=== PATIENT | female | born 2005 | race Two or more races ===

== ENCOUNTER → 2024-11-29 09:55 | Outpatient (BNVA) | payer MEDICAID, SELFPAY | PROVIDERS: Visit Provider Nurse Practitioner Women's Health | DX: N91.2 Amenorrhea, unspecified (principal); N92.6 Irregular menstruation, unspecified | CPT/HCPCS: 81025 ==

== ENCOUNTER → 2024-12-06 11:06 | Outpatient (BNVA) | payer MEDICAID, SELFPAY | PROVIDERS: Visit Provider Nurse Practitioner Women's Health | DX: Z36.9 Encounter for antenatal screening, unspecified (principal) | CPT/HCPCS: 76801 ==

== ENCOUNTER → 2024-12-25 11:40 | Outpatient (BNVA) | payer MEDICAID, SELFPAY | PROVIDERS: Visit Provider Nurse Practitioner Women's Health | DX: Z34.01 Encounter for supervision of normal first pregnancy, first trimester (principal) | CPT/HCPCS: 80307; 84315; 85025; 86592; 86762; 86803; 86850; 86900; 87086; 87340; 87806 ==

== ENCOUNTER → 2025-01-09 12:35 | Outpatient (BNVA) | payer OTHER, MEDICAID, SELFPAY | PROVIDERS: Visit Provider Nurse Practitioner Women's Health | DX: Z34.01 Encounter for supervision of normal first pregnancy, first trimester (principal) | CPT/HCPCS: 84315; 87491; 87591; 87661 ==

== ENCOUNTER → 2025-01-30 09:39 | Outpatient (BNVA) | payer OTHER, MEDICAID, SELFPAY | PROVIDERS: Visit Provider Nurse Practitioner Women's Health | DX: O26.899 Other specified pregnancy related conditions, unspecified trimester (principal); R10.9 Unspecified abdominal pain | CPT/HCPCS: 81000 ==

== ENCOUNTER → 2025-02-19 10:00 | Outpatient (BNVA) | payer OTHER, MEDICAID, SELFPAY | PROVIDERS: Visit Provider Nurse Practitioner Women's Health | DX: Z34.01 Encounter for supervision of normal first pregnancy, first trimester (principal) | CPT/HCPCS: 82105; 84315; 87086 ==

== ENCOUNTER → 2025-03-05 09:52 | Outpatient (BNVA) | payer OTHER, MEDICAID, SELFPAY | PROVIDERS: Visit Provider Obstetrics & Gynecology | DX: O26.892 Other specified pregnancy related conditions, second trimester (principal); Z3A.20 20 weeks gestation of pregnancy | CPT/HCPCS: 76805 ==

== ENCOUNTER → 2025-04-02 11:02 | Outpatient (BNVA) | payer OTHER, MEDICAID, SELFPAY | PROVIDERS: Visit Provider Nurse Practitioner Women's Health | DX: Z34.02 Encounter for supervision of normal first pregnancy, second trimester (principal) | CPT/HCPCS: 82950; 84315 ==

== ENCOUNTER → 2025-05-03 14:37 | Outpatient (BNVA) | payer OTHER, MEDICAID, SELFPAY | PROVIDERS: Visit Provider Obstetrics & Gynecology | DX: Z34.02 Encounter for supervision of normal first pregnancy, second trimester (principal) | CPT/HCPCS: 84315 ==

== ENCOUNTER → 2025-05-17 15:08 | Outpatient (BNVA) | payer OTHER, MEDICAID, SELFPAY | PROVIDERS: Visit Provider Obstetrics & Gynecology | DX: Z34.02 Encounter for supervision of normal first pregnancy, second trimester (principal) | CPT/HCPCS: 84315 ==

== ENCOUNTER 2025-06-03 10:40 | Outpatient (CLI) | payer OTHER, MEDICAID, SELFPAY ==
[2025-06-03 10:50] VITALS: BMI 26.9
[2025-06-03 10:59] VITALS: BP 137/69; PULSE 75
[2025-06-03 11:15] VITALS: BP 121/61; PULSE 54
[2025-06-03 11:30] VITALS: BP 123/68; PULSE 61
== END 2025-06-03 11:45 | disposition home or self-care (01) ==
LOC: OPOB 10:43 → OBGYN 10:43
PROVIDERS: Visit Provider Obstetrics & Gynecology
DX: O36.8190 Decreased fetal movements, unspecified trimester, not applicable or unspecified (principal); Z3A.00 Weeks of gestation of pregnancy not specified
CPT/HCPCS: 59025; 99211

== ENCOUNTER → 2025-06-13 14:10 | Outpatient (BNVA) | payer OTHER, MEDICAID, SELFPAY | PROVIDERS: Visit Provider Nurse Practitioner Women's Health | DX: Z34.03 Encounter for supervision of normal first pregnancy, third trimester (principal) | CPT/HCPCS: 81000; 85025 ==

== ENCOUNTER 2025-07-04 09:26 | Outpatient (CLI) | payer OTHER, MEDICAID, SELFPAY ==
[2025-07-04 09:39] VITALS: BP 139/74; PULSE 88
[2025-07-04 09:42] VITALS: RESP 18; BMI 27.8
[2025-07-04 10:00] VITALS: BP 135/84; PULSE 85
[2025-07-04 10:20] VITALS: BP 121/63; PULSE 74
[2025-07-04 10:40] VITALS: BP 121/60; PULSE 76
== END 2025-07-04 10:55 | disposition home or self-care (01) ==
LOC: OPOB 09:27 → OBGYN 09:31
PROVIDERS: Absent Provider Family Medicine; Visit Provider Family Medicine
DX: O26.899 Other specified pregnancy related conditions, unspecified trimester (principal); Z3A.00 Weeks of gestation of pregnancy not specified; R25.2 Cramp and spasm
CPT/HCPCS: 59025; 99211

== ENCOUNTER 2025-07-04 15:24 | Inpatient (IN) | payer OTHER, MEDICAID, SELFPAY ==
[2025-07-04] VITALS (68 sets, daily range): BP systolic 116–160; BP diastolic 59–91; PULSE 60–148; RESP 14–16; TEMP 36.2–37.2; O2SAT 98–100; BMI 27.7
[2025-07-04 16:01] LABS: Hematocrit 37.1 % (36-47); Hemoglobin 12.90 g/dL (12.4-14.8); Mean Corpuscular HGB Conc 34.8 g/dL (30-55); Mean Corpuscular Hemoglobin 30.6 pg (27-33); Mean Corpuscular Volume 88.1 fl (85-98); Nucleated Red Blood Cells % 0 %; Platelet Count 182 10^3/cmm (157-399); Red Blood Count 4.21 10^6/uL (3.85-5.65); White Blood Count 14.82 10^3/uL (4.5-13.0)
[2025-07-04] MEDS: penicillin g potassium 5,000,000 UNIT in sodium chloride 0.9% (plus) 100 ML 100 UNIT IV (16:03)
--- NOTE | 2025-07-04 17:03 | ANES.PREANE2 ---
Pre-Anesthetic Assessment Height/Weight: Height 1.7 m Weight 80.286 kg Temp Pulse BP Pulse Ox O2 Del Method 97.2 F L 81 132/69 100 Room Air 07/04/25 16:04 07/04/25 17:54 07/04/25 17:54 07/04/25 17:54 07/04/25 15:29 Familial anesthetic complications: none Was Beta Andreia taken within 24 hours: N/A Was Clonidine taken within 24 hours: N/A Social No alcohol and No tobacco Exam alert and oriented x 3 Airway Submandibular: within normal limits Cervical ROM: within normal limits Mallampati: Class II Dentition: full History/ROS No significant complaints Anesthetic Plan ASA status: 2 Anesthesia: Anesthesia Evaluation and Regional (specify below) Risk of > 500 ml blood loss (7ml/kg in children): Yes, adequate IV access and fluids planned Medications/Allergies Home Medications ?Medication ?Instructions ?Recorded ?Confirmed ?Last Taken ?Type vitamins 30 30 mg iron-10 1 cap PO DAILY 11/29/24 07/04/25 07/04/25 07:00 History mg iron-folic acid 1 mg-om3 capsule ferrous sulfate 15 mg iron (75 1 mg PO BID 07/04/25 07/04/25 Unknown History mg)/mL oral drops Allergies Allergy/AdvReac Type Severity Reaction Status Date / Time No Known Allergies Allergy Verified 06/13/25 14:25 Current Medications Generic Name Dose Route Start Last Admin Trade Name Freq PRN Reason Stop Dose Admin Lactated Ringer's 1,000 mls @ 999 mls/hr 07/04/25 15:28 07/04/25 16:03 Lactated Ringers IV 999 mls/hr .Q1H1M PRN Administration See label comments Ropivacaine 200 mg in 100 mls @ 10 mls/hr 07/04/25 15:30 07/04/25 17:54 Naropin Premix EPIDURAL 8 mls/hr .Q10H FANTA Administration Lactated Ringer's 1,000 mls @ 999 mls/hr 07/04/25 17:54 07/04/25 17:57 Lactated Ringers IV 07/04/25 18:54 999 mls/hr .Q1H1M ONE Administration PFSH Anesthesia Medical History No pertinent past medical history neghx: htn, dm, thyroid, dvt/pe PCP: none Surgical History No pertinent past surgical history Family History Grandmother Diabetes Denies family history of Colon cancer Ovarian cancer Prostate cancer Heart disease Hyperlipidemia Breast cancer Hypertension Uterine cancer Thyroid disease Stroke Social History Smoking and tobacco/nicotine status: never used tobacco/nicotine Female Reproductive History : 1 Data Anesthesia 07/04/25 15:45 Short CBC 07/04/25 Range/Units 15:45 WBC 14.82 H (4.5-13.0) 10^3/uL Hgb 12.90 (12.4-14.8) g/dL Hct 37.1 (36-47) % MCV 88.1 (85-98) fl Plt Count 182 (157-399) 10^3/cmm Neut % (Auto) 77.0 % Neut # (Auto) 11.41 H (1.8-8.0) 10^3/uL Blood Bank 07/04/25 15:45 Blood Type O Positive Rho(D) Type Rh positive Antibody Screen Negative
[2025-07-04] MEDS: ROPivacaine premix 200 MG/100 ML PREMIX 8 MG EPIDURAL (17:54)
--- NOTE | 2025-07-04 18:29 | PC.NURSE ---
SEE ANESTHESIA REPORT
--- NOTE | 2025-07-04 18:34 | P.ANES_ITS ---
Anesthesia Procedures Procedure/Date: 07/04/25 Epidural: Time Out Performed: Yes Consents Signed: Procedure Consent Consent: requested by attending/covering physician, from patient and patient agrees to proceed Lumbar Level: L4-L5 Epidural position: sitting Epidural procedure: sterile prep of area, 1% lidocaine to numb the area, 18 g needle, negative for paresthesia passed, test dose given, 1.5% xylocaine 1:200k epi, 0.2% Ropivacaine bolus ml, sterile dressing applied, L.U.D. no apparent complications and 0.2% Ropiavacaine @ mls/hr Additional Comments: 1st attempt at L3-4 Heme with aspiration . catheter removed 2nd attempt at L4-5 successful. no CSF, no heme with aspiration x3. No BP changes, HR fluctuations from 90s to 120s to 140s, back to 100s, and back to 120s, and back to 90s and back to 80s from test dose (1729) until about 1750. Dr. Sahu called and consulted by [employer] DISPATCHER about whether or not this was a positive test dose or not. no other symptoms experienced by patient. decision made to start pump at 8ml/hr (started at 1752) and watch patient closely for 30min. patient educated on symptoms to watch for such as lightheadedness, dizziness, ringing in ears, metal taste in mouth. 1830- pt. states zero of the above sympt oms. With agreement with Dr. Sahu pump increased to 10ml/hr for 30min. then without symptoms can increase to 13ml/hr if needed for additional pain relief.
[2025-07-04] MEDS: PENICILLIN G POTASSIUM 2,500,000 UNIT/50 ML BAG 50 UNIT IV ×2 (19:33→23:46)
[2025-07-04] MEDS: ROPivacaine premix 200 MG/100 ML PREMIX 12 MG EPIDURAL (23:50)
[2025-07-05] VITALS (46 sets, daily range): BP systolic 99–150; BP diastolic 51–81; PULSE 61–134; RESP 16; TEMP 36.8–37.7; O2SAT 97
[2025-07-05] MEDS: PENICILLIN G POTASSIUM 2,500,000 UNIT/50 ML BAG 50 UNIT IV (03:36)
[2025-07-05] MEDS: oxytocin 30 UNIT/500 ML BAG 600 UNIT IV (04:27)
[2025-07-05] MEDS: PRENATAL VIT NO.130/IRON/FOLIC 1 EACH TABLET PO (06:09)
--- NOTE | 2025-07-05 07:24 | PM.OPHPUD ---
Labor & Delivery H&P Update Date of Procedure: July 05, 2025 Date H&P Performed: 07/02/25 Admission Diagnosis: IUP at term in active labor Planned procedure: Expectant management of labor and delivery
--- NOTE | 2025-07-05 07:25 | P.PCNOB_ITS ---
Delivery Note: Date of delivery: July 05, 2025 Estimated blood loss (mL): 200 Pre-Delivery Course: The patient [facility]. She transferred care at approximately 36 weeks gestation to [facility]. There were no complications during the . Delivery: This is a 19-year-old at 37 weeks 6 days gestation who was admitted in active labor. She was noted to be GBS positive and was started on penicillin protocol. She received an epidural for pain management. She had spontaneous rupture of membranes with meconium stained fluid. She had to push for nearly an hour had a normal spontaneous vaginal delivery of a viable male infant weight 3260 g, 7 pounds 3 ounces, Apgars 8 and 9 over an intact perineum. The infant was suctioned at delivery and placed on mother's chest. After the 1 minute the cord was clamped and cut. The placenta was delivered grossly intact and normal to inspection. There was a small second-degree laceration that was sutured using 3-0 chromic. Mother and were doing well after delivery. History History History 1 Term Miscarriages/Ectopic Living Children A&P PDMP PDMP Reviewed: Not Reviewed Coding Level of Care Code Acute Code for Chg Fwd
[2025-07-05] MEDS: ondansetron 2 mg/ML SDV 2 mL 4 MG IVP (08:03)
[2025-07-05 17:43] LABS: Hematocrit 27.4 % (36-47); Hemoglobin 9.40 g/dL (12.4-14.8); Mean Corpuscular HGB Conc 34.3 g/dL (30-55); Mean Corpuscular Hemoglobin 30.8 pg (27-33); Mean Corpuscular Volume 89.8 fl (85-98); Platelet Count 162 10^3/cmm (157-399); Red Blood Count 3.05 10^6/uL (3.85-5.65); White Blood Count 15.72 10^3/uL (4.5-13.0)
[2025-07-06 04:00] VITALS: BP 134/74; PULSE 69; RESP 16; TEMP 36.7
[2025-07-06] MEDS: PRENATAL VIT NO.130/IRON/FOLIC 1 EACH TABLET PO (04:32)
[2025-07-06 10:39] VITALS: BP 137/74; PULSE 71; RESP 16; TEMP 36.7
--- NOTE | 2025-07-06 11:28 | P.DS_ITS ---
Discharge Providers Date of Admission: 07/04/25 15:24 Date of Discharge: July 06, 2025 Attending Provider at Admission: Maci Jones MD Attending Provider at Discharge: Maci Jones MD Reason for Visit Reason for Visit: contractions Hospital Course Hospital Course This is a 19-year-old G1 now P1 who was admitted in active labor. She had a normal spontaneous vaginal delivery of a viable male infant at 37 weeks 6 days gestation. Physical Exam Narrative: Alert and oriented, sitting in bed feeding the , heart regular rate and rhythm, lungs clear to auscultation bilaterally, abdomen is soft and fundus is firm, extremities have 1+ edema but no calf tenderness Urinary Catheter Management: Mckeon: Cath Placed During This Visit: yes, but has since been removed by the nurse Reason for Continuing Indwelling Catheter: Decision to DC Catheter Urinary Catheter Date of Insertion: 07/04/25 Urinary Catheter Time of Insertion: 18:12 Date Urinary Catheter Removed: 07/05/25 Time Urinary Catheter Discontinued: 03:20 Discharge Data Studies Completed and Pending Laboratory Results WBC 15.72 10^3/uL (4.5-13.0) H 07/05/25 16:30 RBC 3.05 10^6/uL (3.85-5.65) L 07/05/25 16:30 Hgb 9.40 g/dL (12.4-14.8) L 07/05/25 16:30 Hct 27.4 % (36-47) L 07/05/25 16:30 MCV 89.8 fl (85-98) 07/05/25 16:30 MCH 30.8 pg (27-33) 07/05/25 16:30 MCHC 34.3 g/dL (30-55) 07/05/25 16:30 RDW 13.2 % (12.1-15.1) 07/05/25 16:30 Plt Count 162 10^3/cmm (157-399) 07/05/25 16:30 MPV 11.2 fL (7.4-10.4) H 07/05/25 16:30 Neut % (Auto) 77.0 % 07/04/25 15:45 Lymph % (Auto) 15.2 % 07/04/25 15:45 Bullitt % (Auto) 5.7 % 07/04/25 15:45 Eos % (Auto) 1.0 % 07/04/25 15:45 Baso % (Auto) 0.4 % 07/04/25 15:45 Neut # (Auto) 11.41 10^3/uL (1.8-8.0) H 07/04/25 15:45 Lymph # (Auto) 2.3 10^3/uL (1.5-6.5) 07/04/25 15:45 Bullitt # (Auto) 0.8 10^3/uL (0.2-0.9) 07/04/25 15:45 Eos # (Auto) 0.2 10^3/uL (0.0-0.8) 07/04/25 15:45 Baso # (Auto) 0.1 10^3/uL (0.0-0.1) 07/04/25 15:45 Nucleated RBC % (auto) 0 % 07/04/25 15:45 Nucleated RBCs # 0.0 /100WBC 07/04/25 15:45 POC Glucose 126 mg/dL (70-110) H 07/05/25 08:09 Blood Type O Positive 07/04/25 15:45 Rho(D) Type Rh positive 07/04/25 15:45 Antibody Screen Negative 07/04/25 15:45 Vitals Last Vital Signs Temp 98.1 F 07/06/25 10:39 Pulse 71 07/06/25 10:39 Resp 16 07/06/25 10:39 BP 137/74 07/06/25 10:39 Pulse Ox 97 07/05/25 14:15 O2 Del Method Room Air 07/05/25 14:15 Discharge Plan Discharge Patient Disposition: Home Condition: Stable Prescriptions: Continued PNV [id number] 30 mg iron-10 mg iron-1 mg capsule 1 cap PO DAILY ferrous sulfate 15 mg iron (75 mg)/mL Drops 1 mg PO BID Discharge Order = DC NOW: Discharge Order (Routine); Ordered 07/06/25 Ordered By: Maci Jones Referrals: Maci Jones MD [Physician, Family Practice] - 1 month Discharge Diet: Usual diet Discharge Activity: Limit activity as instructed Patient Instructions: Depression (DC), Bleeding (DC), Preeclampsia and Eclampsia After Delivery (GEN), Hemorrhage (DC), OB Discharge Report, OB Food/Drug Interaction Guide, Opioid Safety, OB Home Care, OB [facility] Parent Packet, OB Vaginal Deliveries, Patient Portal & Steffen Instructions Activity Restrictions/Additional Instructions: Nothing per vagina for 6 weeks Discharge Attestations Time Spent in Discharge Care*: less than 30 min Quality Metrics Clinical Quality Measures [ No reported AMI, CVA or VTE this stay] Coding Level of Care Code Acute Code for Chg Fwd
[2025-07-06 14:36] VITALS: BP 122/78; PULSE 74; RESP 16; TEMP 36.7; O2SAT 99
== END 2025-07-06 14:37 | disposition home or self-care (01) | DRG 807 ==
LOC: OPOB 15:24 → OBGYN 15:24
PROVIDERS: Admitting Provider Family Medicine; Visit Provider Family Medicine
DX: O99.824 Streptococcus B carrier state complicating childbirth (principal); Z37.0 Single live birth; O77.0 Labor and delivery complicated by meconium in amniotic fluid; O70.1 Second degree perineal laceration during delivery; Z3A.37 37 weeks gestation of pregnancy
CPT/HCPCS: 36415; 36416; 51702; 59025; 59409; 82962; 85025; 85027; 86850; 86900; 96374; 99211; J2405; J2540; J2590; J2795; J7120; J7121; J9999